=== PATIENT | male | born 1995 | race Caucasian/White ===

== ENCOUNTER 2017-12-07 12:33 | Emergency (ER) | payer OTHER ==
[~2017-12-07] VITALS: Ht 170.2 cm; Wt 87.0 kg
[2017-12-07 12:47] VITALS: TEMP 36.9; Ht 170.2 cm; Wt 87.0 kg
[2017-12-07] MEDS ORDERED: ONDANSETRON INJ 2 MG/ML 2 ML VIAL IV STA (13:52)
[2017-12-07] MEDS ORDERED: SODIUM CHLORIDE 0.9% 1000ML 1,000 ML IV ONE (14:00)
[2017-12-07] MEDS ORDERED: OPTIRAY 320 IV PRN (14:15)
[2017-12-07] MEDS ORDERED: ADAP0.1G10 TOP (14:34)
[2017-12-07 14:37] LABS: BASO % 0.1 %; BASO ABS # 0.01 K/uL (0-0.2); EOS % 0.1 %; EOS ABS # 0.01 K/uL (0-0.5); HEMATOCRIT 48.3 % (42-52); HEMOGLOBIN 17.1 g/dL (14.0-18.0); IG# 0.05 K/uL (0.00-0.02); LYMPH % 2.9 %; LYMPH ABS # 0.47 K/uL (1.2-3.4); MEAN CORPUSCULAR HEMOGLOBIN 30.8 pg (25-34); MEAN CORPUSCULAR HGB CONC 35.4 g/dl (32-36); MEAN PLATELET VOLUME 10.1 fL (7.4-10.4); MONO % 4.8 %; MONO ABS # 0.78 K/uL (0.11-0.59); NEUT % 91.8 %; NEUT ABS # 14.82 K/uL (1.4-6.5); PLATELET COUNT 222 K/uL (130-400); RED CELL DISTRIBUTION WIDTH CV 12.6 % (11.5-14.5); RED CELL DISTRIBUTION WIDTH SD 39.9 fL (36.4-46.3); WHITE BLOOD COUNT 16.14 K/uL (4.8-10.8)
[2017-12-07 14:41] LABS: ALBUMIN 4.8 gm/dl (3.4-5.0); CALCIUM 9.7 mg/dl (8.5-10.1); CREATININE 1.04 mg/dl (0.60-1.40); POTASSIUM 3.7 mmol/L (3.5-5.1)
[2017-12-07 14:44] LABS: TOTAL PROTEIN 8.1 gm/dl (6.4-8.2)
--- NOTE | 2017-12-07 17:26 | DIAGNOSTIC IMAGING REPORT ---
ABD/PELVIS IV AND ORAL CONT CLINICAL HISTORY: 22 years-old Male presenting with diffusely tender abdomen, periumbilical pain, nausea and vomiting. TECHNIQUE: Multidetector CT of the abdomen and pelvis was performed after the administration of oral and intravenous contrast. IV contrast: 94 mL of Optiray 320. A dose lowering technique was used consistent with the principles of ALARA (as low as reasonably achievable). COMPARISON: None. CT DOSE (mGy.cm): The estimated cumulative dose is 965.66 mGycm. 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 Lung bases: Minimal basilar opacities, likely atelectasis. Normal heart size. No pericardial or pleural effusion. Liver: Normal morphology. No liver lesion. Patent hepatic vasculature. Biliary: No intrahepatic or extrahepatic biliary ductal dilatation. Normal gallbladder. Pancreas: Normal. Spleen: Normal. Splenule noted. Adrenal glands: Normal. Kidneys and ureters: Normal. No hydronephrosis. Bladder: Incompletely evaluated secondary to underdistention. Pelvic organs: Prostate and seminal vesicles normal. Bowel: Normal appendix. No bowel obstruction. Mild wall thickening of the terminal ileum may be present though the terminal ileum is under distended. No perienteric or pericolonic inflammatory change. Peritoneal cavity: No free fluid or intraperitoneal gas. Lymph nodes: No enlarged lymph nodes in the abdomen or pelvis. Vasculature: Aorta and IVC patent and normal in caliber. Abdominal wall: Normal. Musculoskeletal: Normal. IMPRESSION: 1. No appendicitis. 2. Suggestion of wall thickening of the terminal ileum, though this is incompletely distended. This could suggest ileitis. No other convincing evidence of acute intra-abdominal pathology. Electronically signed by: Kevin Jones M.D. 12/07/2017 5:24 PM Dictated Date/Time: 12/07/2017 5:19 PM
[2017-12-07] MEDS ORDERED: ONDA4TAB46 PO (18:02)
[2017-12-07 18:10] VITALS: BP 138/70; PULSE 91; O2SAT 100
--- NOTE | 2017-12-07 19:18 | EMERGENCY ROOM VISIT NOTE ---
History Report prepared by Paola: Rylee Vazquez Under the Supervision of: Dr. Jared Vazquez M.D. First contact with patient: 13:45 Chief Complaint: ABDOMINAL PAIN Stated Complaint: VOMITING,NAUSEA,DIZZY,ABD/STOMACH PROBLEM Nursing Triage Summary: pt here with diffuse abd pains since 0200, along with n/v/d. pt sent from [facility] with elevated wbc. History of Present Illness The patient is a 22 year old male who presents to the Emergency Room with complaints of upper abdominal pain beginning this morning around 0200. He describes the pain as a sharp pain. The patient states that last night he went to a buffet on campus and has had intermittent vomiting and diarrhea since that time. He reports that he went to take an uber to class this morning and vomited in the uber. The patient states that he was then driven to [facility] where he had an elevated white blood cell count and was referred here. The patient denies having a fever. He denies a history of an appendectomy and a cholecystectomy. The patient denies alcohol use last night. Source of History: patient Onset: 0200 this morning Position: abdomen (upper ) Quality: sharp Associated Symptoms: + vomiting, + diarrhea, No fevers Review of Systems See HPI for pertinent positives & negatives. A total of 10 systems reviewed and were otherwise negative. Past Medical & Surgical Medical Problems: (1) No significant active problems Family History No pertinent family history Social History Smoking Status: Never Smoker Marital Status: single Occupation Status: [employer] student Current/Historical Medications Scheduled Adapalene (Differin), 1 APPLN TOP HS Scheduled PRN Ondansetron Hcl (Zofran), 4 MG PO TID PRN for Nausea Allergies Coded Allergies: No Known Allergies (Unverified , 12/07/17) Physical Exam Vital Signs Date Time Temp Pulse Resp B/P (MAP) Pulse Ox O2 Delivery O2 Flow Rate FiO2 12/07/17 18:10 91 16 138/70 100 Room Air 12/07/17 17:14 90 18 125/68 99 Room Air 12/07/17 14:58 87 16 127/71 100 Room Air 12/07/17 12:47 36.9 100 16 124/71 95 Room Air Physical Exam Constitutional: Vital signs reviewed. Eyes: Pupils are equal round reactive to light. Conjunctiva are noninjected. ENT: Pharynx is clear without erythema or exudate. Mucous membranes are moist. Neck supple without meningeal signs. Respiratory: Clear to auscultation bilaterally. Breath sounds are equal bilaterally. Cardiovascular: Regular rate and rhythm. No rubs or gallops. GI: Soft, nondistended. Diffuse right-sided tenderness with voluntary guarding. Bowel sounds are present. Musculoskeletal: No peripheral edema. No lower extremity tenderness. Integumentary: No cyanosis. Neurological: The patient is awake and alert. No focal deficits. Psychiatric: Normal affect. Medical Decision & Procedures ER Provider Diagnostic Interpretation: Radiology results as stated below per my review and the radiologist's interpretation: ABD/PELVIS IV AND ORAL CONT CLINICAL HISTORY: 22 years-old Male presenting with diffusely tender abdomen, periumbilical pain, nausea and vomiting. TECHNIQUE: Multidetector CT of the abdomen and pelvis was performed after the administration of oral and intravenous contrast. IV contrast: 94 mL of Optiray 320. A dose lowering technique was used consistent with the principles of ALARA (as low as reasonably achievable). COMPARISON: None. CT DOSE (mGy.cm): The estimated cumulative dose is 965.66 mGycm. 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 Lung bases: Minimal basilar opacities, likely atelectasis. Normal heart size. No pericardial or pleural effusion. Liver: Normal morphology. No liver lesion. Patent hepatic vasculature. Biliary: No intrahepatic or extrahepatic biliary ductal dilatation. Normal gallbladder. Pancreas: Normal. Spleen: Normal. Splenule noted. Adrenal glands: Normal. Kidneys and ureters: Normal. No hydronephrosis. Bladder: Incompletely evaluated secondary to underdistention. Pelvic organs: Prostate and seminal vesicles normal. Bowel: Normal appendix. No bowel obstruction. Mild wall thickening of the terminal ileum may be present though the terminal ileum is under distended. No perienteric or pericolonic inflammatory change. Peritoneal cavity: No free fluid or intraperitoneal gas. Lymph nodes: No enlarged lymph nodes in the abdomen or pelvis. Vasculature: Aorta and IVC patent and normal in caliber. Abdominal wall: Normal. Musculoskeletal: Normal. IMPRESSION: 1. No appendicitis. 2. Suggestion of wall thickening of the terminal ileum, though this is incompletely distended. This could suggest ileitis. No other convincing evidence of acute intra-abdominal pathology. Electronically signed by: Kevin Jones M.D. 12/07/2017 5:24 PM Dictated Date/Time: 12/07/2017 5:19 PM Laboratory Results 12/07/17 13:30 Red Blood Count 5.55, Mean Corpuscular Volume 87.0, Mean Corpuscular Hemoglobin 30.8, Mean Corpuscular Hemoglobin Concent 35.4, Mean Platelet Volume 10.1, Neutrophils (%) (Auto) 91.8, Lymphocytes (%) (Auto) 2.9, Monocytes (%) (Auto) 4.8, Eosinophils (%) (Auto) 0.1, Basophils (%) (Auto) 0.1, Neutrophils # (Auto) 14.82, Lymphocytes # (Auto) 0.47, Monocytes # (Auto) 0.78, Eosinophils # (Auto) 0.01, Basophils # (Auto) 0.01 12/07/17 13:30 Test 12/07/17 13:30 12/07/17 16:20 White Blood Count 16.14 K/uL (4.8-10.8) Red Blood Count 5.55 M/uL (4.7-6.1) Hemoglobin 17.1 g/dL (14.0-18.0) Hematocrit 48.3 % (42-52) Mean Corpuscular Volume 87.0 fL (80-100) Mean Corpuscular Hemoglobin 30.8 pg (25-34) Mean Corpuscular Hemoglobin Concent 35.4 g/dl (32-36) Platelet Count 222 K/uL (130-400) Mean Platelet Volume 10.1 fL (7.4-10.4) Neutrophils (%) (Auto) 91.8 % Lymphocytes (%) (Auto) 2.9 % Monocytes (%) (Auto) 4.8 % Eosinophils (%) (Auto) 0.1 % Basophils (%) (Auto) 0.1 % Neutrophils # (Auto) 14.82 K/uL (1.4-6.5) Lymphocytes # (Auto) 0.47 K/uL (1.2-3.4) Monocytes # (Auto) 0.78 K/uL (0.11-0.59) Eosinophils # (Auto) 0.01 K/uL (0-0.5) Basophils # (Auto) 0.01 K/uL (0-0.2) RDW Standard Deviation 39.9 fL (36.4-46.3) RDW Coefficient of Variation 12.6 % (11.5-14.5) Immature Granulocyte % (Auto) 0.3 % Immature Granulocyte # (Auto) 0.05 K/uL (0.00-0.02) Urine Color DK YELLOW Urine Appearance CLEAR (CLEAR) Urine pH 7.5 (4.5-7.5) Urine Specific [place] 1.030 (1.000-1.030) Urine Protein NEG (NEG) Urine Glucose (UA) NEG (NEG) Urine Ketones NEG (NEG) Urine Occult Blood NEG (NEG) Urine Nitrite NEG (NEG) Urine Bilirubin NEG (NEG) Urine Urobilinogen NEG (NEG) Urine Leukocyte Esterase NEG (NEG) Anion Gap 7.0 mmol/L (3-11) Est Creatinine Clear Calc Drug Dose 118.3 ml/min Estimated GFR () 118.4 Estimated GFR (Non- 102.2 BUN/Creatinine Ratio 13.8 (10-20) Calcium Level 9.7 mg/dl (8.5-10.1) Total Bilirubin 1.0 mg/dl (0.2-1) Aspartate Amino Transf (AST/SGOT) 15 U/L (15-37) Alanine Aminotransferase (ALT/SGPT) 37 U/L (12-78) Alkaline Phosphatase 104 U/L (45-117) C-Reactive Protein 0.95 mg/dl (0-0.29) Total Protein 8.1 gm/dl (6.4-8.2) Albumin 4.8 gm/dl (3.4-5.0) Globulin 3.3 gm/dl (2.5-4.0) Albumin/Globulin Ratio 1.4 (0.9-2) Lipase 115 U/L (73-393) Laboratory results as reviewed by me. Medications Administered Medications (Trade) Dose Ordered Sig/Yaakov Route Start Time Stop Time Status Last Admin Dose Admin Sodium Chloride 1,000 ml @ 999 mls/hr Q1H1M ONCE IV 12/07/17 14:00 12/07/17 15:00 DC 12/07/17 14:02 999 MLS/HR Ondansetron HCl (Zofran Inj) 4 mg NOW STAT IV 12/07/17 13:52 12/07/17 13:54 DC 12/07/17 14:03 4 MG ED Course 1350: The patient was evaluated in room B12B by the resident. A complete history and physical exam was performed. 1352: Ordered Zofran Inj 4 mg IV. 1400: Ordered Sodium Chloride 1,000 l @ 999 mls/hr IV. 1402: I evaluated the patient. 1755: The patient's case was discussed with Dr. Garnica who said that the patient can follow up in the office tomorrow. 1800: Upon reevaluation, the patient appeared to have improvement of his symptoms. Tonight's findings were discussed with the patient. He verbalized agreement of the treatment plan. He was discharged home. Medical Decision This is a 22-year-old male who presents with right-sided abdominal pain. Differential diagnosis includes acute appendicitis, perforation, abscess, Crohn' s disease, enteritis. I did perform a limited focused review of portions of the patient's old chart on the electronic medical record. The patient has no prior visits. I did evaluate the patient as noted above. IV access was established. Patient was treated with Zofran and normal saline IV. I did order and personally review the patient's urinalysis as described above. I did review the patient's blood work as noted in the electronic medical record. His white count is elevated. I did order a CT of the abdomen and pelvis. I did review the images myself as well as the radiology report as described above. He does appear to have an ileitis. The case was discussed with Dr. Garnica of gastroenterology. He did not recommend steroids at this time and will follow up with the patient tomorrow in the office. Resident Physician Supervision Note: I did evaluate and examine this patient myself. I did guide management for the patient. I agree with the resident's (Dr. Power) assessment as discussed. Please see the resident's dictation for further details. Medication Reconcilliation Current Medication List: was personally reviewed by me Blood Pressure Screening Patient's blood pressure: Normal blood pressure Consults Time Called: 1754 Consulting Physician: Dr. Garnica- GI Returned Call: [phone] The patient's case was discussed with Dr. Garnica who said that the patient can follow up in the office tomorrow. Impression Primary Impression: Ileitis Scribe Attestation The scribe's documentation has been prepared under my direct and personally reviewed by me in its entirety. I confirm that the note above accurately reflects all work, treatment, procedures, and medical decision making performed by me. Departure Information Dispostion Home / Self-Care Prescriptions Ondansetron Hcl (ZOFRAN) 4 Mg Tab 4 MG PO TID Y for Nausea for 10 Days, #30 TAB Prov: Bel Power MD 12/07/17 Referrals [facility] Forms HOME CARE DOCUMENTATION FORM, IMPORTANT VISIT INFORMATION Patient Instructions My [facility] Additional Instructions You were admitted to the hospital for the evaluation of your abdominal pain. You were treated with IV fluids and zofran ( an anti nausea pill). A CT was completed and revealed inflammation in your ileum. We discussed with GI and they would like you to follow up with them TOMORROW. Please call the following number at 8am they are expecting your phone call: [address], [facility] [address] [place] [address] Monday through Monday, from 8:30 am to 5:00 pm If you develop worsening symptoms, abdominal pain, chest pain, fever > 102F.
== END 2017-12-07 18:11 | disposition home or self-care (01) ==
LOC: C.EDB 12:35
DX: K52.9 Noninfective gastroenteritis and colitis, unspecified (principal); D72.829 Elevated white blood cell count, unspecified